=== PATIENT | male | born 1940 | race Caucasian/White ===

== ENCOUNTER 2019-05-30 07:32 | Emergency (ER) | payer MEDICARE ==
[~2019-05-30] VITALS: Ht 180.3 cm; Wt 88.0 kg
[~2019-05-30 07:32] MED LIST: OMEP20TA5 PO
[2019-05-30 07:36] VITALS: BP 144/80
[2019-05-30] MEDS ORDERED: CEPH-572 PO (08:32)
[2019-05-30] MEDS ORDERED: mupirocin 2% ointment 22GM TP STA (08:32)
== END 2019-05-30 08:45 | disposition home or self-care (01) ==
LOC: ER 07:33
DX: S91.104A Unspecified open wound of right lesser toe(s) without damage to nail, initial encounter (principal); L03.031 Cellulitis of right toe; Z88.0 Allergy status to penicillin; Z88.1 Allergy status to other antibiotic agents; Z79.899 Other long term (current) drug therapy; X58.XXXA Exposure to other specified factors, initial encounter; Y93.89 Activity, other specified; Y92.89 Other specified places as the place of occurrence of the external cause; Y99.8 Other external cause status
CPT/HCPCS: 99283

== ENCOUNTER 2019-10-01 04:15 | Outpatient (CLI) | payer SELFPAY ==
[2019-10-01 08:48] LABS: HEMOGLOBIN A1C 5.8 % (4.5-6.2)
[2019-10-01 08:59] LABS: CHOL/HDL RATIO 3.67 (0.00-4.99)
== END 2019-10-01 23:59 | disposition home or self-care (01) ==
LOC: HW HEART 04:15
DX: Z13.6 Encounter for screening for cardiovascular disorders (principal)
CPT/HCPCS: 36415

== ENCOUNTER 2022-09-04 05:34 | Emergency (ER) | payer MEDICARE ==
[~2022-09-04] VITALS: Ht 177.8 cm; Wt 72.0 kg
[~2022-09-04 05:34] MED LIST changes: +OMEP20TA43 PO; -OMEP20TA5 PO
--- NOTE | 2022-09-04 08:06 | NUR ---
I have reviewed and agree with all interventions, assessments performed and documented by RAVEN Pimentel.
[2022-09-04] MEDS ORDERED: ipratropium/albuterol 3ml nebule NEB ONE (08:55)
[2022-09-04 09:31] VITALS: BP 131/88
[2022-09-04] MEDS ORDERED: ALBU6.7H14 INH (09:31)
[2022-09-04] MEDS ORDERED: FLUT1DIS20 INH (09:31)
== END 2022-09-04 09:40 | disposition home or self-care (01) ==
LOC: ER 05:35
DX: J98.01 Acute bronchospasm (principal); Z88.0 Allergy status to penicillin; Z88.1 Allergy status to other antibiotic agents; Z79.899 Other long term (current) drug therapy
CPT/HCPCS: 71046; 94640; 94760; 99283

== ENCOUNTER 2023-07-25 07:37 | Emergency (ER) | payer MEDICARE ==
[~2023-07-25] VITALS: Ht 175.3 cm; Wt 93.4 kg
[~2023-07-25 07:37] MED LIST changes: +ALBU6.7H14 INH; +FLUT1DIS20 INH
[2023-07-25 08:18] VITALS: BP 161/85; PULSE 68; RESP 17; TEMP 97.9; O2SAT 97
== END 2023-07-25 08:57 | disposition home or self-care (01) ==
LOC: ER 07:38
DX: S86.911A Strain of unspecified muscle(s) and tendon(s) at lower leg level, right leg, initial encounter (principal); M79.651 Pain in right thigh; M25.551 Pain in right hip; R20.0 Anesthesia of skin; I10 Essential (primary) hypertension; Z88.0 Allergy status to penicillin; Z88.1 Allergy status to other antibiotic agents; Z79.899 Other long term (current) drug therapy; Z96.651 Presence of right artificial knee joint; X58.XXXA Exposure to other specified factors, initial encounter; Y93.89 Activity, other specified; Y92.89 Other specified places as the place of occurrence of the external cause; Y99.8 Other external cause status
CPT/HCPCS: 99282